=== PATIENT | female | born 1950 | race Two or more races ===

== ENCOUNTER 2020-03-25 11:29 | Emergency (ER) | payer OTHER ==
[~2020-03-25] VITALS: Ht 160 cm; Wt 75.3 kg
[2020-03-25] MEDS ORDERED: ATACAND32 MG (12:01)
[2020-03-25] MEDS ORDERED: TOPROL XL25 M1 (12:01)
[2020-03-25] MEDS ORDERED: HUMULIN 70100 UNIT/2 (12:02)
== END 2020-03-26 13:47 | disposition home or self-care (01) ==
LOC: ER 11:29
DX: L97.528 Non-pressure chronic ulcer of other part of left foot with other specified severity (principal); Z20.828 Contact with and (suspected) exposure to other viral communicable diseases

== ENCOUNTER 2020-04-08 06:43 | Inpatient (IN) | payer OTHER ==
[~2020-04-08] VITALS: Ht 91.4 cm; Wt 5.0 kg
[~2020-04-08 06:43] MED LIST: ATACAND32 MG; HUMULIN 70100 UNIT/2; TOPROL XL25 M1
[2020-04-08] MEDS ORDERED: FORTAMET1000 MG (07:10)
[2020-04-08] MEDS ORDERED: BACLOFEN20 MG (07:11)
[2020-04-08] MEDS ORDERED: CLARITIN10 MG PO (07:13)
--- NOTE | 2020-04-08 07:13 | NUR ---
SE RECIBE PACIENTE ALERTA Y ORIENTADA AMBULANDO CON QUEJA PRINCIPAL DE FIEBRE CON MOISES ULCERA EN PIE IZQ. SE ANDRADE SIGNOS VITALES Y SE VERIFICA HERIDA.SE ANDRADE SIGNOS VITALES Y SE UBICA EN AREA INDICADA
--- NOTE | 2020-04-08 07:17 | NUR ---
KAEE DEL DR. BLAND
--- NOTE | 2020-04-08 08:29 | NUR ---
SE ORIENTA A PTE SOBRE PROCESO DE VENOPUNCION, LAURENCE DE MUESTRAS, ADMINISTRACION DE MED IV. PTE REFIERE ENTENDER INF ZONIA POR RN HERNANDEZ. SE MANTIENE PTE BAJO OBSERVACION EN ESPERA DE VENOUS & ARTERIAL DUPLEX, DOPPLER.
[2020-04-13] MEDS ORDERED: CANDESARTAN-HC1 EAC1 (11:08)
== END 2020-04-16 13:29 | disposition home or self-care (01) | DRG 638 ==
LOC: ER 06:43 → MEDJ 14:37 → MEDI 14:37 → MEDJ 04-14 11:08
PROVIDERS: ADMIT Internal Medicine; ATTEND Internal Medicine
PROC: B54DZZZ Ultrasonography of Bilateral Lower Extremity Veins (ICD-10-PCS; principal; 2020-04-08)
PROC: CP2 Nuclear Medicine, Musculoskeletal System, Tomographic (Tomo) Nuclear Medicine Imaging (ICD-10-PCS; 2020-04-10)
PROC: CW1NLZZ Planar Nuclear Medicine Imaging of Whole Body using Gallium 67 (Ga-67) (ICD-10-PCS; 2020-04-13)
DX: E11.621 Type 2 diabetes mellitus with foot ulcer (principal); L03.116 Cellulitis of left lower limb; E11.65 Type 2 diabetes mellitus with hyperglycemia; E11.22 Type 2 diabetes mellitus with diabetic chronic kidney disease; L97.529 Non-pressure chronic ulcer of other part of left foot with unspecified severity; N17.8 Other acute kidney failure; N18.30 Chronic kidney disease, stage 3 unspecified; D64.9 Anemia, unspecified; K59.09 Other constipation; I13.10 Hypertensive heart and chronic kidney disease without heart failure, with stage 1 through stage 4 chronic kidney disease, or unspecified chronic kidney disease; Z20.828 Contact with and (suspected) exposure to other viral communicable diseases; Z79.4 Long term (current) use of insulin